=== PATIENT | male | born 1965 | race African-American/Black ===

== ENCOUNTER 2019-09-04 15:59 | Emergency (ER) | payer OTHER ==
[~2019-09-04] VITALS: Ht 177.8 cm; Wt 88.5 kg
[2019-09-04] MEDS ORDERED: SIMVASTATIN5 MG (16:08)
== END 2019-09-04 17:40 | disposition home or self-care (01) ==
LOC: ER 15:59
DX: J03.90 Acute tonsillitis, unspecified (principal)

== ENCOUNTER → 2021-05-24 | Emergency (ER) | payer OTHER ==
[~2021-05-24] VITALS: Ht 177.8 cm; Wt 86.2 kg
[~2021-05-24] MED LIST: SIMVASTATIN5 MG
== END | disposition left against medical advice (07) ==
LOC: ER 21:48
DX: R19.7 Diarrhea, unspecified (principal); Z20.822 Contact with and (suspected) exposure to COVID-19